=== PATIENT | male | born 1980 | race Caucasian/White ===

== ENCOUNTER → 2020-06-06 13:13 | Outpatient (CLI) | payer OTHER, SELFPAY ==
--- NOTE | ~2020-06-06 | MR_ITS ---
EXAMINATION: MR knee RT wo con DATE: 06/06/2020 14:01 INDICATION: Right knee pain TECHNIQUE: Magnetic resonance imaging (MRI) of the right knee was performed without intravenous contr ast. Sequences included coronal PD-weighted FSE, coronal PD-weighted FS FSE, sagittal T2-weighted FS E, sagittal PD-weighted FS FSE and axial PD weighted fat saturated FSE. COMPARISON: None. FINDINGS: Medial compartment: Medial meniscus is normal. Articular cartilage is normal. Lateral compartment: Lateral meniscus is normal. Articular cartilage is normal. Patellofemoral compartment: Articular cartilage is normal. Ligaments and tendons: Anterior and posterior cruciate ligaments are normal. The medial collateral ligament and fibular orion ateral ligament complex are normal. The extensor mechanism is normal. The visualized medial and later al hamstring tendons as well as the iliotibial band are normal. Fluid: Physiologic amount of fluid in the joint space. No loose osteochondral bodies identified. Osseous/other: There are small low signal intensity bone islands at the medial and lateral femoral condyles. Normal marrow signal. No fracture or abnormal marrow replacing process. IMPRESSION: 1. Essentially normal right knee MRI with normal menisci, cartilage and stabilizing ligaments. Reviewed, dictated and finalized at location B. IMPRESSION: 1. Essentially normal right knee MRI with normal menisci, cartilage and stabili zing ligaments.
== END ==
PROVIDERS: Visit Provider Nurse Practitioner Family
DX: M25.561 Pain in right knee (principal)
CPT/HCPCS: 73721

== ENCOUNTER 2023-11-18 10:20 | Emergency (ER) | payer OTHER, SELFPAY ==
[2023-11-18] VITALS (13 sets, daily range): BP systolic 120–141; BP diastolic 69–99; PULSE 82–94; RESP 13–24; TEMP 36.6; O2SAT 94–100
--- NOTE | ~2023-11-18 | CT_ITS ---
EXAMINATION: CT brain wo con DATE: 11/18/2023 11:45 INDICATION: Syncope TECHNIQUE: Computed tomography (CT) of the head was performed without intravenous contrast. Sagittal and coronal reconstructions were performed. The mA was adjusted according to patient size. Iterative reconstruction technique was employed. The dose-length product was 681.00 mGy-cm. COMPARISON: None FINDINGS: No acute intracranial hemorrhage, acute infarction or abnormal extra axial fluid collection. Ventricl es are normal and symmetric. No mass/mass effect. Mild mucosal thickening bilateral ethmoid sinuses. The orbits and mastoid air cells are normal. IMPRESSION: 1. Normal brain. No acute intracranial process. Reviewed, dictated and finalized at location B.
--- NOTE | ~2023-11-18 | XR_ITS ---
EXAMINATION: XR chest 1V portable DATE: 11/18/2023 11:06 INDICATION: Syncope. TECHNIQUE: A single frontal view of the chest was obtained. COMPARISON: Chest 2 views 09/24/2016 FINDINGS: There is no pneumonia, pleural effusion, or pneumothorax. The heart size is normal. IMPRESSION: 1. No acute cardiopulmonary disease. Reviewed, dictated and finalized at location A.
--- NOTE | 2023-11-18 10:26 | ECG_ITS ---
Test Date: 2023-11-18 10:31:36 Measurements Intervals [place] Rate: 82 P: 49 PA: 211 QRS: -9 QRSD: 108 T: -16 QT: 364 QTc: 426 Interpretive Statements SINUS RHYTHM WITH FIRST DEGREE AV BLOCK POSSIBLE LEFT ATRIAL ENLARGEMENT DELAYED PRECORDIAL R/S TRANSITION INFERIOR MYOCARDIAL INFARCTION , OF INDETERMINATE AGE BASELINE ARTIFACT- I, II, AVR, V1 ABNORMAL ECG No previous ECG available for comparison Electronically Signed On 11-18-2023 10:47:14 CDT by Kendall Cleary D.O.
[2023-11-18] MEDS: SODIUM CHLORIDE 0.9% IV 1,000 ML 999 ML IV CONT (10:39)
--- NOTE | 2023-11-18 10:42 | ED.SYNCOPE ---
HPI - Syncope General Chief Complaint: Syncope Stated Complaint: syncopal episode Time Seen by Provider: 11/18/23 10:24 History of Present Illness HPI narrative: 43-year-old male with a history of heart failure, hypertension, diabetes and gout. Today patient presents with multiple syncopal episodes. He was at his scheduled doctor's appointment today getting a cortisone injection for his gout in his foot. He complete his visit and was way upon discharge she had a sudden episode of syncope with 5 seconds of prodrome of feeling lightheaded. He passed out, unclear how long he was on the ground or if he had any kind of shaking activity although less likely given that it is not have any seizure history. He woke up and EMS was on scene. He was evaluated and had another syncopal event when he tried to stand up and ambulate with EMS. At that time his transport the hospital for further evaluation. On my initial encounter the patient is awake alert oriented. Per EMS report he was hypotensive, diaphoretic on scene which resolved in route. He has normal reassuring vital signs with a blood pressure 120/74, pulse of 85, temperature 36.6? and 100% saturation. Patient is awake alert oriented states that he felt like he was going to pass out prior to him actually having a syncope event. No chest pain, shortness a breath, tunnel vision, headache, vision changes no nausea or vomiting. He states he had similar episode this afternoon the past mostly socially with positional changes. He does have significant cardiac history with hypertension, congestive heart failure but no recent medication changes and he did take his blood pressure medications this morning. No recent illnesses or injuries. He does not think he has had of weight down but he is not sure as he did lose consciousness. Does not take any blood thinner medications. No history of seizure disorder. Related Data Home Medications Medication Instructions Recorded Confirmed sacubitril 49 mg-valsartan 51 mg 1 tablet PO BID 01/18/19 12/24/22 tablet (Entresto) carvedilol 25 mg tablet (Coreg) 25 mg PO Q12H 12/02/21 12/24/22 Allergies Allergy/AdvReac Type Severity Reaction Status Date / Time No Known Allergies Allergy Verified 11/18/23 10:46 Review of Systems Review of Systems: As reviewed above in HPI [facility] Past Medical History Medical History Congestive heart failure Dyslipidemia Essential (primary) hypertension Idiopathic chronic gout, unspecified site, without tophus (tophi) Lateral meniscus tear Right knee pain Type 2 diabetes mellitus without complications Surgical History Surgical History History of cholecystectomy 07/2018 Family History Family History Mother Diabetes mellitus Hypertension Father Hypertension Social History Social History Smoking status: Never smoker Alcohol intake: current Drinks per week: 1 Substance use: never Substance use type: does not use Lack of Transportation: No Lack of Food: Never True Current Housing: I Have Housing Concerned About Future Housing: No Difficulty Paying Gas/Electric Bills: No Difficulty Paying for Meds: No Currently Unemployed: No Education: Bachelor's Degree Difficulty w/ Childcare or Family Care: No Living arrangements: with family Additional living arrangements comments: and Children Occupation/Education: occupation Gender identity (if verbalized by the patient): Male Sexual Orientation (if Verbalized by the Patient): Straight or Heterosexual Exam Narrative: GENERAL: [Well-appearing, well-nourished, and in no acute distress.] HEAD: [Normocephalic, atraumatic.] EYES: [PERRLA and EOMI.] ENT: Nares clear, no rhinorrhea
[2023-11-18 10:44] LABS: Basophils Absolute Auto 0.1 K/mm3 (0.0-0.1); Basophils Percent Auto 0.5 % (0.2-1.2); Eosinophils Absolute Auto 0.2 K/mm3 (0-0.3); Hematocrit 43.7 % (42.0-52.0); Hemoglobin 15.2 g/dL (14.0-18.0); Immature Granulocyte Absolute 0.05 K/mm3 (0.00-0.031); Immature Granulocyte Percent A 0.5 % (0-0.5); Lymphocytes Absolute Auto 2.16 K/mm3 (0.9-3.2); Lymphocytes Percent Auto 19.7 % (18.3-44.2); Mean Corpuscular HGB Conc 34.8 g/dl (32-36); Mean Corpuscular Hemoglobin 28.6 pg (26-34); Mean Corpuscular Volume 82.3 fl (80-100); Mean Platelet Volume 9.8 fl (7.4-10.4); Monocytes Absolute Auto 0.9 K/mm3 (0.1-0.6); Monocytes Percent Auto 8.5 % (2.6-8.5); Neutrophils Absolute Auto 7.5 K/mm3 (1.3-6.7); Neutrophils Percent Auto 68.8 % (45.5-73.1); Platelet Count Result 236 k/mm3 (150-375); Red Blood Count 5.31 M/mm3 (4.6-6.20); Red Cell Distribution Width 13.2 % (11.5-14.5); White Blood Count 10.9 K/mm3 (4.5-10.0)
[2023-11-18 10:44] LABS: Glucose Point of Care 221 mg/dl (65-105)
[2023-11-18 10:56] LABS: Magnesium 2.1 mg/dL (1.6-2.3)
[2023-11-18 10:58] LABS: Partial Thromboplastin Time 24.4 Seconds (22.3-36.8)
[2023-11-18 11:02] LABS: Prothrombin Time 13.5 Seconds (11.1-14.7)
[2023-11-18 11:10] LABS: Alanine Aminotransferase 26 U/L (6-50); Albumin Level 4.1 g/dL (3.5-5.1); Alkaline Phosphatase 71 U/L (38-126); Anion Gap 11 mmol/L (4-12); Aspartate Amino Transferase 23 U/L (17-59); Blood Urea Nitrogen 20 mg/dL (9-20); Calcium 9.2 mg/dL (8.4-10.2); Carbon Dioxide 32 mmol/L (22-30); Chloride 97 mmol/L (98-107); Estimated CRCL calculation 80 ml/min; Estimated Glomerular Filt Rate 51; Glucose 221 mg/dL (65-110); Potassium 3.1 mmol/L (3.4-5.0); Sodium 140 mmol/L (137-145)
[2023-11-18 11:20] LABS: NT Pro B Type Natriuretic Pept 59 pg/mL (19.9-100); Troponin I < 0.012 ng/mL (0.000-0.034)
[2023-11-18 11:52] LABS: D Dimer < 0.22 ug/mL (<0.48)
--- NOTE | 2023-11-18 13:18 | ECG_ITS ---
Test Date: 2023-11-18 13:22:15 Measurements Intervals [place] Rate: 83 P: 46 FL: 208 QRS: -12 QRSD: 113 T: -12 QT: 356 QTc: 420 Interpretive Statements SINUS RHYTHM WITH FIRST DEGREE AV BLOCK POSSIBLE LEFT ATRIAL ENLARGEMENT INTRAVENTRICULAR CONDUCTION DELAY POSSIBLE LEFT VENTRICULAR HYPERTROPHY BORDERLINE R WAVE PROGRESSION, ANTERIOR LEADS INFERIOR MYOCARDIAL INFARCTION , PROBABLY OLD BASELINE ARTIFACT- I, II, AVR, AVL, AVF ABNORMAL ECG Compared to ECG 11/18/2023 10:31:36 NO SIGNIFICANT CHANGE Electronically Signed On 11-18-2023 18:42:09 CDT by Kendall Cleary D.O.
[2023-11-18 13:52] LABS: Troponin I < 0.012 ng/mL (0.000-0.034)
[2023-11-18] MEDS: POTASSIUM CHLORIDE 20 MEQ PACKET (FOR LIQUID) 40 MEQ PO (14:35)
== END 2023-11-18 15:20 | disposition home or self-care (01) ==
PROVIDERS: Emergency Provider Student in an Organized Health Care Education/Training Program; PCP Family Medicine
DX: R55 Syncope and collapse (principal); E87.6 Hypokalemia; I50.9 Heart failure, unspecified; I11.0 Hypertensive heart disease with heart failure; E11.9 Type 2 diabetes mellitus without complications; E78.5 Hyperlipidemia, unspecified
CPT/HCPCS: 36415; 70450; 71045; 80053; 82948; 83735; 83880; 84484; 85025; 85380; 85610; 85730; 93005; 96360; 99284; A9270; J7030